=== PATIENT | male | born 1935 | race Caucasian/White ===

== ENCOUNTER → 2016-07-16 | Outpatient (CLI) | payer MEDICARE, BC ==
[~2016-07-16] MED LIST: COUMADIN PO; COUMADIN5 MG PO; KEFLEX PO; LORTAB 7.5-5001 TAB PO; TIMOPTIC2.5 ML OS; VICODIN 5/500 T1 TAB PO; VICODIN PO; WARFARIN SODIU7.5 MG PO; [UNRECOGNIZED DRUG - OTHER]; [UNRECOGNIZED DRUG - OTHER]
--- NOTE | ~2016-07-16 | MR113 ---
[facility] A Service of [facility] & [facility] RADIOLOGY TEXT RESULTS PATIENT: SVETLANA BRIZUELA [facility] : 33 UNIT #: [id number] AGE: [address]: Rakesh Bronson MD SEX: M ORDER DR: [id number] [facility] [address] [place], [place] [address] [id number] O MR#: [id number] #: [id number] NAME: SVETLANA BRIZUELA : 1935 SEX: M STUDY DATE/TIME: 07/16/2016 18:25 UNIT: [facility] ROOM: STUDY DESCRIPTION: MR Lumbar Wo Contrast Attending Physician: Rakesh Bronson M.D. Referring Physician: Rakesh Bronson M.D. Ordering Physician: Rakesh Bronson M.D. Primary Care Physician: Carmelita Phillips A.P.R.N. MRI CENTER REPORT This report is preliminary unless electronic signature is present. EXAM Lumbar spine MRI without contrast. HISTORY Compression fracture L2. Burning in feet for 6 months with swollen legs. No known injury. No surgery. No cancer history. COMMENT MRI lumbar spine performed without contrast using routine 1.5T imaging technique. Plain film comparison is from 07/26/2011. If there is some interval outside imaging I do not have access to the study or report. There is an anterior wedge compression fracture at L2, asymmetrically worse to the right side associated with a broad superior endplate Schmorl node and marked anterior endplate spondylosis. There is some edema within the disc and mild edema within the adjacent marrow but majority of this compression fracture appears to be chronic. It is appreciated on the plain film series from 2011. It is possible there is subtle progression given the edema within the anterior aspect of the disc in the region of the large Schmorl node. There is also what appears to be an acquired at least partial fusion across the L4-5 intervertebral disc. There is no hardware and this could be related to an episode of prior severe degenerative disc disease or infection/inflammation. Please correlate further with history. There is some type 2 marrow endplate degenerative change either side of the 4-5 disc and some mild type 2 marrow endplate degenerative changes at the 1-2 level. The discs are desiccated otherwise at 1-2, 3-4 and 5-1 levels and there is mild loss of intervertebral disc height at 1-2 and 5-1. The conus medullaris terminates at L1-2 and is normal. At T12-L1, no significant abnormality. L1-2, mild right, [id number] left-sided facet degenerative change, mild posterior disc bulge. No canal stenosis. At the level of upper L2, [facility] A Service of [facility] & [facility] RADIOLOGY TEXT RESULTS PATIENT: SVETLANA BRIZUELA LOCATION: [facility] : 33 UNIT #: [id number] AGE: [address]: Rakesh Bronson MD SEX: M ORDER DR: there is only minimal posterior-superior cortical buckling which appears chronic and this does not result in canal stenosis. Only mild foraminal narrowing bilaterally. At L2-3, there is mild bilateral facet degenerative change, ligamentum flavum thickening, minimal posterior disc bulging, no canal stenosis and no foraminal impingement. At L3-4, [id number] facet degenerative change, mild ligamentum flavum thickening, broad-based posterior disc protrusion, annular fissure, more prominent to the right. There is mild central canal stenosis. Mild mass effect on right greater than left lateral recess. At L4-5, the acquired fusion across the intervertebral disc is seen and there is knxj-xn-zxhsvycm facet degenerative change right greater than left. There is mild left greater than right-sided foraminal narrowing, mild mass effect on the left lateral recess but no central canal stenosis. There is no disc extrusion. At L5-S1, mild facet degenerative change on the left. No canal stenosis. Mild mass effect on the left lateral recess. Mild right-side foraminal narrowing. There is a small disc extrusion to the left side posterolaterally remaining contiguous with the disc extending slightly cephalad from the disc and impinging upon expected location left L5 root in the foramen. There is fairly severe left 5-1 foraminal impingement. The disc extrusion is subarticular in location. Only mild right inferior foraminal narrowing. IMPRESSION 1. There is a compression fracture involving the anterior-superior endplate L2. The most recent imaging I have for comparison is from 2012 and most helpful would be comparison to the outside imaging which prompted this study. 2. The L2 compression fracture was present 2012. There may be some subtle progression. There is some edema within the anterior aspect of the 1-2 intervertebral disc and subtle edema in the adjacent marrow. I suspect this is related to mild progression of the compression fracture. Please exclude the unlikely possibility of early diskitis. 3. There is acquired fusion at the 4-5 intervertebral disc level probably due to some remote episode of infectious or inflammatory disease. 4. There is a small disc extrusion left side posterolaterally at L5-S1 with severe impingement upon the left 5-1 foramen and mass effect on the expected location left L5 root. Please refer to the uzrbg-un-uvpgy description of findings. 5. There is no canal stenosis associated with the L2 compression deformity. [facility]. [facility] A Service of [facility] RADIOLOGY TEXT RESULTS PATIENT: SVETLANA BRIZUELA LOCATION: [facility] : 33 UNIT #: [id number] AGE: [address]: Rakesh Bronson MD SEX: M ORDER DR: Dictated by... Aide Cazares M.D. THIS IS AN ELECTRONICALLY VERIFIED REPORT Aide Cazares M.D. at 07/18/2016 6:12 PM Rick TD: 07/18/2016 13:12 JOB #: [id number] MRI CENTER REPORT Page 1 of 1 COPY
== END | disposition home or self-care (01) ==
LOC: CMRI 17:13
DX: S32.020A Wedge compression fracture of second lumbar vertebra, initial encounter for closed fracture (principal); M48.56XA Collapsed vertebra, not elsewhere classified, lumbar region, initial encounter for fracture; R60.0 Localized edema; M51.26 Other intervertebral disc displacement, lumbar region; Z98.1 Arthrodesis status
CPT/HCPCS: 72148